=== PATIENT | female | born 1930 | race Caucasian/White ===

== ENCOUNTER 2016-05-12 13:07 | Outpatient (CLI) | payer MEDICARE ==
[2016-05-12 22:42] LABS: #Basophils 0.1 thou/uL (0.0-0.2); #Eosinphils 0.3 thou/uL (0.0-0.7); #Lymphocytes 1.5 thou/uL (1.20-3.40); #Monocytes 0.9 thou/uL (0.11-0.59); #Neutrophils 5.5 thou/uL (1.40-6.50); %Basophils 0.9 % (0.0-1.0); %Eosinophils 3.9 % (0.0-10.0); %Monocytes 10.6 % (0.0-10.0); Hematocrit 45.2 % (36.0-47.0); Mean Platelet Volume 6.9 fL (7.4-10.4); Red Blood Cell (RBC) Count 5.02 mill/uL (4.20-5.40); White Blood Cell (WBC) Count 8.3 thou/uL (4.8-10.8)
== END 2016-05-12 13:08 | disposition home or self-care (01) ==
LOC: HPCALD 13:07
PROVIDERS: ATTEND Physician Assistant
DX: M79.89 Other specified soft tissue disorders (principal)
CPT/HCPCS: 36415; 84550; 85025

== ENCOUNTER 2016-05-31 16:00 | Outpatient (CLI) | payer MEDICARE ==
--- NOTE | 2016-05-31 21:18 | RAD ---
LEFT WRIST THREE VIEWS: Date: 05-31-16 FINDINGS: The proximal end of the first metacarpal is deformed suggesting old trauma here with resulting sever e degenerative changes between the trapezium and the first metacarpal. The trapezium itself is some what flattened and deformed. The other carpal bones appearance intact, as did the distal radius and ulna. 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 POS: HOME
== END 2016-05-31 16:01 | disposition home or self-care (01) ==
LOC: BURRAD 16:00
PROVIDERS: ATTEND Family Medicine
DX: M25.532 Pain in left wrist (principal); M19.032 Primary osteoarthritis, left wrist

== ENCOUNTER 2016-08-02 23:59 | Emergency (ER) | payer MEDICARE ==
[2016-08-03] MEDS ORDERED: Acetaminophen 325 MG TAB ONE (00:34)
--- NOTE | 2016-08-03 07:26 | CT ---
PRELIMINARY REPORT/[facility]/EMERGENCY AFTER HOURS PROCEDURE: EXAM: CT Head Without Intravenous Contrast. CLINICAL HISTORY: 85 years old, female; Injury or trauma; Fall; Initial encounter; Abrasion; Head, generalized; Injury date: 08/03/2015; Injury details: Pt presents to the er via ems for fall from bed; Left sided pain TECHNIQUE: Axial computed tomography images of the head/brain without intravenous contrast. COMPARISON: No relevant prior studies available. FINDINGS: Brain: Volume loss and chronic small vessel ischemic change. 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 No hemorrhag e. Ventricles: Unremarkable. No ventriculomegaly. Bones/joints: Unremarkable. No acute fracture. Soft tissues: Unremarkable. Sinuses: Unremarkable as visualized. No acute sinusitis. Mastoid air cells: Unremarkable as visualized. No mastoid effusion. IMPRESSION: No intracranial hemorrhage. Thank you for allowing us to participate in the care of your patient. Dictated and Authenticated by: Roland Dsouza MD 08/03/2016 1:17 AM Central Time ([place] \T\ [place]) FINAL REPORT CT OF THE BRAIN WITHOUT CONTRAST 08/03/2016 A non-contrast CT of the brain was obtained and compared with the prior study of 02/11/2014. Generalized atrophy is present. The ventricular sizes are about the same as they were in 2013 and a re appropriate for the atrophy present. Patchy deep white matter lucency is consistent with chronic ischemic changes. There are a few focal areas in the deep white matter that may be small lacunar i nfarcts. No intracranial bleeding or extraaxial hematoma was seen. There is no sign of mass or acu te stroke. The calvarium appears intact. The sphenoid sinus and mastoid air cells are clear. IMPRESSION: Chronic changes but no acute traumatic findings. Report in agreement with the preliminary reading by Net[facility]. POS: HOME
--- NOTE | 2016-08-03 07:27 | RAD ---
PELVIS 08/03/2016 A small bony density seen just to the left of the left femoral head is probably part of the degenera tive process and certainly does not appear acute. There has been a prior lower lumbar fusion with p edicle screws. IMPRESSION: No acute traumatic finding. POS: HOME
--- NOTE | 2016-08-03 07:33 | RAD ---
PORTABLE CHEST 08/03/2016 An AP portable film at 0102 hours is compared with an 03/23/2016 study. Mild cardiomegaly is present as before. While the vessels are perhaps a little more prominent than they were in 2016, I still would not call them congested as of yet. No lobar infiltrates or effusio ns were seen. Calcification is present in the aortic arch. The trachea is midline. There is no me diastinal widening or shift. There is no sign of pneumothorax. No fractures were appreciated. IMPRESSION: Cardiomegaly and arteriosclerosis but no acute traumatic change. POS: HOME
== END 2016-08-03 01:35 ==
LOC: BURERS 23:59
DX: M25.552 Pain in left hip (principal); E11.9 Type 2 diabetes mellitus without complications; E03.9 Hypothyroidism, unspecified; F41.9 Anxiety disorder, unspecified; F32.9 Major depressive disorder, single episode, unspecified; J45.909 Unspecified asthma, uncomplicated; I12.9 Hypertensive chronic kidney disease with stage 1 through stage 4 chronic kidney disease, or unspecified chronic kidney disease; N18.9 Chronic kidney disease, unspecified; Z79.899 Other long term (current) drug therapy; Z79.84 Long term (current) use of oral hypoglycemic drugs; W06.XXXA Fall from bed, initial encounter
CPT/HCPCS: 70450; 71010; 72170

== ENCOUNTER 2016-09-03 16:32 | Outpatient (CLI) | payer MEDICARE ==
--- NOTE | 2016-09-03 21:10 | RAD ---
LEFT WRIST 3 VIEWS: Date: 09/03/16 Comparison is made with the prior study of 05/31/16. FINDINGS: No acute fracture was appreciated, though subtle injuries might be missed in this patient due to her chronic degenerative changes. There is deformity of the proximal end of the first metacarpal consis tent with old trauma. There is severe degenerative change in the first carpometacarpal joint with pr oximal subluxation of the metacarpal. The other carpal bones were unremarkable. IMPRESSION: Chronic changes, but no definite acute finding. POS: HOME
--- NOTE | 2016-09-03 21:11 | RAD ---
LEFT HAND THREE VIEWS 09/03/16 Comparison is made with the 05/31/16 wrist series. Severe degenerative changes are again noted in the first carpometacarpal joint with proximal subluxa tion of the first metacarpal. There probably has been old injury here. The other carpal bones appear ed intact. No definite acute fracture was seen. 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 Some cystic changes are seen in the distal end of the middle phalanx of the third digit, probably also related to degenerative changes. IMPRESSION: Numerous chronic and severe findings, but no definite acute fracture. POS: HOME
== END 2016-09-03 16:33 | disposition home or self-care (01) ==
LOC: BURMANOR 16:32
PROVIDERS: ATTEND Clinical Nurse Specialist Medical-Surgical
DX: M25.532 Pain in left wrist (principal); F03.90 Unspecified dementia, unspecified severity, without behavioral disturbance, psychotic disturbance, mood disturbance, and anxiety; M79.642 Pain in left hand

== ENCOUNTER 2016-10-02 14:11 | Outpatient (CLI) | payer MEDICARE ==
--- NOTE | 2016-10-02 17:15 | RAD ---
RIGHT HIP TWO VIEWS HISTORY: Fall this morning. Pain to the lateral side of the hip. COMPARISON: None. FINDINGS: No displaced fracture or malalignment of the right hip. The obturator ring appears to be intact. T he sacral struts appear to be intact. IMPRESSION: No acute fracture or malalignment. If the patient is acutely unable to bear weight, MRI may be obta ined to evaluate for a radiographically occult fracture. POS: [facility]
== END 2016-10-02 14:12 | disposition home or self-care (01) ==
LOC: BURRAD 14:11
PROVIDERS: ATTEND Family Medicine
DX: M25.551 Pain in right hip (principal)

== ENCOUNTER 2016-12-22 00:34 | Outpatient (CLI) | payer MEDICARE ==
[2016-12-22 07:58] LABS: ALT (SGPT) 9 U/L (8-55); AST (SGOT) 14 U/L (5-34); Albumin 3.4 g/dL (3.4-4.8); Alkaline Phosphatase 64 U/L (40-150); Anion Gap 15 mmol/L (10-20); BUN (Urea Nitrogen) 34 mg/dL (9.8-20.1); Bilirubin, Total 0.3 mg/dL (0.2-1.2); Calc. Creatinine Clearance 0 mL/min (70-130); Carbon Dioxide 23 mmol/L (23-31); Chloride 105 mmol/L (98-107); Estimated GFR-MDRD 43; Globulin 2.9 g/dL (2.4-3.5); Glucose 100 mg/dL (83-110); Potassium 4.3 mmol/L (3.5-5.1); Protein, Total 6.3 g/dL (6.0-8.3); Sodium 139 mmol/L (136-145)
[2016-12-22 10:58] LABS: Hemoglobin 12.7 g/dL (12.0-16.0); Mean Corpuscular HGB CONC 34.1 g/dL (32.0-36.0); Mean Corpuscular Hemoglobin 29.7 pg (27.0-31.0); Mean Corpuscular Volume 87.2 fl (81.0-99.0); Mean Platelet Volume 7.2 fL (7.4-10.4); Platelet Count 281 thou/uL (130-400); RBC Distribution Width 13.2 % (11.5-14.5); Red Blood Cell (RBC) Count 4.28 mill/uL (4.20-5.40); White Blood Cell (WBC) Count 7.8 thou/uL (4.8-10.8)
[2016-12-22 11:04] LABS: Eosinophils 4 % (0-10); Lymphocytes 23 % (21-51); MDiff Complete? YES; Monocytes 9 % (0-10); Neutrophil 64 % (42-75); PLT Morphology Comment Appears Adequate; RBC Morphology Normal
== END 2016-12-22 00:35 | disposition home or self-care (01) ==
LOC: BURMANOR 00:34 → EDSTATUS 21:12
PROVIDERS: ATTEND Clinical Nurse Specialist Medical-Surgical
DX: E03.8 Other specified hypothyroidism (principal); N19 Unspecified kidney failure; E11.8 Type 2 diabetes mellitus with unspecified complications
CPT/HCPCS: 36415; 80053; 83036; 84443; 85025